=== PATIENT | male | born 1965 | race Caucasian/White ===

== ENCOUNTER 2021-08-01 23:22 | Day surgery (SDC) | payer SELFPAY ==
[~2021-08-01] VITALS: Ht 170.1 cm; Wt 65.0 kg
[2021-08-01 23:43] LABS: BASOPHILS # (AUTO) 0.1 10^3/uL (0.0-0.1); BASOPHILS % (AUTO) 1 % (0-10); MEAN CORPUSCULAR HGB CONC 33 g/dL (32-36)
[2021-08-01 23:45] LABS: EOSINOPHILS # (AUTO) 0.4 10^3/uL (0.0-0.3); EOSINOPHILS % (AUTO) 3 % (0-10); HEMATOCRIT 46 % (40-54); LYMPHOCYTES # (AUTO) 2.1 10^3/uL (1.0-4.0); LYMPHOCYTES % (AUTO) 14 % (12-44); MEAN CORPUSCULAR HEMOGLOBIN 29 pg (25-34); MEAN CORPUSCULAR VOLUME 89 fL (80-99); MEAN PLATELET VOLUME 10.1 fL (9.0-12.2); MONOCYTES # (AUTO) 0.9 10^3/uL (0.0-1.0); MONOCYTES % (AUTO) 6 % (0-12); NEUTROPHILS # (AUTO) 11.1 10^3/uL (1.8-7.8); NEUTROPHILS % (AUTO) 76 % (42-75); PLATELET COUNT 222 10^3/uL (130-400); WHITE BLOOD COUNT 14.6 10^3/uL (4.3-11.0)
[2021-08-01] MEDS ORDERED: fentaNYL INJ 100 MCG/2 ML AMP IVP ONE (23:45)
[2021-08-01] MEDS ORDERED: NS IV 1000 ML 1,000 ML IV SCH (23:45)
--- NOTE | 2021-08-01 23:50 | ED Chest Pain ---
General Chief Complaint: Chest Pain Stated Complaint: CP Source: patient, EMS Exam Limitations: no limitations History of Present Illness Date Seen by Provider: Aug 01, 2021 Time Seen by Provider: 23:19 Initial Comments Patient is a 55-year-old male who presents to the emergency room with severe chest pain midsternal radiating to his jaws and bilateral arms down into his right hand. Time of EMS call was about 1013. He reported to EMS that he had onset of pain about 30 minutes beforehand. He became nauseated sweaty, vomited and very short of breath. He has had intermittent chest pain with exertion over the last 2 or 3 days. He had been working out in his yard today. He takes no daily medications. Last time he saw Was sometime in 2014 or 2016. He is a smoker. Does not recall any family history of coronary artery disease. Rates the pain at 10 out of 10. Prior to arrival he received morphine, nitro and a full aspirin. The nitro and morphine reportedly dropped his blood pressure down into the 80s. He does have fluids running. I ordered a heparin bolus. Patient has been given 50 mics of fentanyl. No recent illnesses. No black or bloody stool. All other review of systems reviewed and negative except as stated. 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: Yes NTG SL DISHROOM ATTENDANT: Yes Associated Symptoms: back pain, diaphoresis, nausea/vomiting, shortness of breath Allergies and Home Medications Allergies Coded Allergies: No Known Drug Allergies (Unverified , 08/01/21) Patient Home Medication List Home Medication List Reviewed: Yes Review of Systems Review of Systems Constitutional: see HPI EENTM: No Symptoms Reported Respiratory: Shortness of Air Cardiovascular: Chest Pain Gastrointestinal: Nausea Genitourinary: No Symptoms Reported Musculoskeletal: other (bilat arm pain) Skin: other (sweaty) Psychiatric/Neurological: Anxiety All Other Systems Reviewed Negative Unless Noted: Yes Physical Exam Vital Signs Vital Signs - First Documented 08/01/21 08/01/21 23:22 23:50 Temp 36.7 Pulse 118 Resp 24 B/P (MAP) 95/68 (77) Pulse Ox 97 O2 Delivery Room Air Capillary Refill : Height, Weight, BMI Height: '" Weight: lbs. oz. kg; BMI Method: General Appearance: WD/WN, Anxious, Severe Distress HEENT: PERRL/EOMI, Other (porr dentition) Neck: Normal Inspection Respiratory: Lungs Clear, Normal Breath Sounds, No Accessory Muscle Use, No Respiratory Distress Cardiovascular: Regular Rate, Rhythm (60's), Normal Peripheral Pulses (bilateral 2+ radial pulses) Gastrointestinal: Non Tender, Soft Genital/Rectal: Normal Genital Exam Extremity: Normal Capillary Refill, Normal Inspection, Normal Range of Motion, No Pedal Edema Neurologic/Psychiatric: Alert, Oriented x3, No Motor/Sensory Deficits, Normal Mood/Affect Skin: Warm/Dry, Pallor (greay-farzana) Critical Care Note Critical Care Start Time: 23:19 Stop Time: 00:00 Total Time (minutes) 30 minutes critical care time in the evaluation and management of this patient with severe chest pain, STEMI. Time includes initial evaluation and management, fluid resuscitation for low blood pressure status post nitro and morphine. Medication administration. review and interpretation of EKG, review and interpretation of chest x-ray, discussion with cardiology. Progress/Results/Core Measures Results/Orders Lab Results Laboratory Tests Test 08/01/21 23:33 Range/Units White Blood Count 14.6 H 4.3-11.0 10^3/uL Red Blood Count 5.16 4.30-5.52 10^6/uL Hemoglobin 15.0 13.3-17.7 g/dL Hematocrit 46 40-54 % Mean Corpuscular Volume 89 80-99 fL Mean Corpuscular Hemoglobin 29 25-34 pg Mean Corpuscular Hemoglobin Concent 33 32-36 g/dL Red Cell Distribution Width 13.2 10.0-14.5 % Platelet Count 222 130-400 10^3/uL Mean Platelet Volume 10.1 9.0-12.2 fL Immature Granulocyte % (Auto) 1 % Neutrophils (%) (Auto) 76 H 42-75 % Lymphocytes (%) (Auto) 14 12-44 % Monocytes (%) (Auto) 6 0-12 % Eosinophils (%) (Auto) 3 0-10 % Basophils (%) (Auto) 1 0-10 % Neutrophils # (Auto) 11.1 H 1.8-7.8 10^3/uL Lymphocytes # (Auto) 2.1 1.0-4.0 10^3/uL Monocytes # (Auto) 0.9 0.0-1.0 10^3/uL Eosinophils # (Auto) 0.4 H 0.0-0.3 10^3/uL Basophils # (Auto) 0.1 0.0-0.1 10^3/uL Immature Granulocyte # (Auto) 0.1 0.0-0.1 10^3/uL Percent Immature Platelet Fraction 4.8 0.0-7.6 % Prothrombin Time 13.1 12.2-14.7 SEC INR Comment 1.0 0.8-1.4 Activated Partial Thromboplast Time 24 24-35 SEC Sodium Level 144 135-145 MMOL/L Potassium Level 3.7 3.6-5.0 MMOL/L Chloride Level 107 98-107 MMOL/L Carbon Dioxide Level 17 L 21-32 MMOL/L Anion Gap 20 H 5-14 MMOL/L Blood Urea Nitrogen 8 7-18 MG/DL Creatinine 1.30 0.60-1.30 MG/DL Estimat Glomerular Filtration Rate 64 BUN/Creatinine Ratio 6 Glucose Level 125 H 70-105 MG/DL Calcium Level 8.5 8.5-10.1 MG/DL Corrected Calcium 8.6 8.5-10.1 MG/DL Magnesium Level 1.9 1.6-2.4 MG/DL Total Bilirubin 0.2 0.1-1.0 MG/DL Aspartate Amino Transf (AST/SGOT) 9 5-34 U/L Alanine Aminotransferase (ALT/SGPT) 11 0-55 U/L Alkaline Phosphatase 78 40-136 U/L Myoglobin 68.6 10.0-92.0 NG/ML Troponin I 0.216 H <0.028 NG/ML Total Protein 6.7 6.4-8.2 GM/DL Albumin 3.9 3.2-4.5 GM/DL My Orders Orders - DAVID MUNOZ MD Cbc With Automated Diff (08/01/21 23:32) Magnesium (08/01/21 23:32) Chest 1 View, Ap/Pa Only (08/01/21 23:32) Ekg Tracing (08/01/21 23:32) Comprehensive Metabolic Panel (08/01/21 23:32) Myoglobin Serum (08/01/21 23:32) Protime With Inr (08/01/21 23:32) Partial Thromboplastin Time (08/01/21 23:32) O2 (08/01/21 23:32) Monitor-Rhythm Ecg Trace Only (08/01/21 23:32) Lipid Panel (08/02/21 06:00) Ed Iv/Invasive Line Start (08/01/21 23:32) Troponin I Nery (08/01/21 23:32) Fentanyl Inj (Sublimaze Injection) (08/01/21 23:45) Ns Iv 1000 Ml (Sodium Chloride 0.9%) (08/01/21 23:45) Heparin Injection (Heparin Injection) (08/01/21 23:45) Medications Given in ED Current Medications Medications Dose Ordered Sig/Augustus Route Start Time Stop Time Status Last Admin Dose Admin Fentanyl Citrate 50 mcg ONCE ONCE IVP 08/01/21 23:45 08/01/21 23:46 DC 08/01/21 23:43 50 MCG Heparin Sodium (Porcine) 5,000 units ONCE ONCE IV 08/01/21 23:45 08/01/21 23:46 DC 08/01/21 23:46 5,000 UNITS Vital Signs/I&O 08/01/21 08/01/21 23:22 23:50 Temp 36.7 Pulse 118 Resp 24 B/P (MAP) 95/68 (77) Pulse Ox 97 99 O2 Delivery Room Air Nasal Cannula 08/02/21 00:00 Intake Total 1200 ml Balance 1200 ml Progress Progress Note : Time: 23:50 Progress Note Discussed with Dr Mccauley at 2333 - will call STEMI; I notified the Latcher who will call the Reference Data Expert team; Dr Mccauley in ED @ 0706 Initial ECG Impression Date: Aug 01, 2021 Initial ECG Impression Time: 23:29 Initial ECG Rate: 67 Initial ECG Rhythm: Normal Sinus Initial ECG Intervals ME 155 QRS 128 QTC 445 Comment PVC; LBBB; ST depression inferiorly 2-3mm; ST elevation lateral leads 1mm with possible elevation 1 and aVL Diagnostic Imaging Diagonstic Imaging: Xray Plain Films/CT/US/NM/MRI: chest Comments no cardiomegaly; looks a little volume heavy with mild pulmonary edema; no infiltrates or effusions; bony structures appear unremarkable Departure Impression Primary Impression: STEMI (ST elevation myocardial infarction) Qualified Codes: I21.3 - ST elevation (STEMI) myocardial infarction of unspecified site Disposition: 09 ADMITTED INPATIENT Condition: Critical Admissions Decision to Admit Reason: Admit from ER (General) Decision to Admit/Date: Aug 01, 2021 Time/Decision to Admit Time: 23:33 Departure-Patient Inst. Referrals: UNKNOWN (PCP) Primary Care Physician DAVID MUNOZ MD Aug 01, 2021 23:50
[2021-08-01 23:51] LABS: ALBUMIN 3.9 GM/DL (3.2-4.5)
[2021-08-01 23:52] LABS: POTASSIUM 3.7 MMOL/L (3.6-5.0)
[2021-08-01 23:53] LABS: CALCIUM 8.5 MG/DL (8.5-10.1)
[2021-08-01 23:54] LABS: PROTHROMBIN TIME PATIENT 13.1 SEC (12.2-14.7); TOTAL PROTEIN 6.7 GM/DL (6.4-8.2)
[2021-08-01 23:56] LABS: BILIRUBIN,TOTAL 0.2 MG/DL (0.1-1.0)
[2021-08-01 23:58] LABS: CREATININE SERUM 1.3 MG/DL (0.60-1.30)
--- NOTE | 2021-08-01 23:58 | Consultation-Cardiology ---
HPI-Cardiology Cardiology Consultation: Date of Consultation 08/01/21 Date of Admission 08/01/21 Attending Physician Admitting Physician Unknown Consulting Physician DAKOTA FARRELL JR, MD HPI: Time Seen by a Provider: 23:53 Chief Complaint: Chest pain Narinder is a 55-year-old male with no known history of coronary artery disease who has had a several day history of exertional chest discomfort and dyspnea. This would resolve with rest. He did not seek medical attention. Then this evening he developed severe substernal chest discomfort at rest. This again made him short of breath. This radiated to his back and left shoulder. He became concerned and called EMS. He was then brought to our emergency room for further evaluation. In the ambulance he was given intravenous morphine which then caused some hypotension. Here in the emergency room he continues to complain of 10/10 chest pain. Nothing seems to be helping. He did have some nausea and vomiting prior to calling the ambulance. He denies paroxysmal nocturnal dyspnea, insomnia, palpitations, lightheadedness, syncope, or ankle edema. He smokes cigarettes and marijuana but denies illegal drug use. Certain portions of this document may have been dictated utilizing voice recognition technology. Inherent to this technology, typographical and grammatical errors may exist. As much as I am diligent to identify and correct these mistakes, some errors may remain in the document. Review of Systems-Cardiology Review of Systems Other comments Review of 10 organ systems is as per the history of present illness, otherwise negative. All Other Systems Reviewed Negative Unless Noted: Yes LPG-[id number] Hx Patient Social History Smoking Status: Current Everyday Smoker Past Medical History PMH As described under Assessment. Family Medical History Family Medical History: The patient does not know of any family history of premature coronary artery disease in first-degree relatives. Allergies and Home Medications Allergies Coded Allergies: No Known Drug Allergies (Unverified , 08/01/21) Patient Home Medication List Home Medication List Reviewed: Yes Exam Vital Signs Vital Signs Date Time Temp Pulse Resp B/P (MAP) Pulse Ox O2 Delivery O2 Flow Rate FiO2 08/01/21 23:22 97 Room Air Physical Exam General: Alert. Well nourished and appears older than stated age. He is disheveled. He is writhing in pain. Eye: Extraocular movements are intact. Conjunctivae are clear. There are no xanthelasma. HENT: Normocephalic. Atraumatic. Carotid pulsations 2/2 without bruits. Extremely poor dentition. Neck: Jugular venous pressure does not appear elevated. No thyromegaly appreciated. Respiratory: Lungs are clear to auscultation. Respirations are non-labored. Breath sounds are equal. Symmetrical chest wall expansion. Cardiovascular: Normal rate. Regular rhythm. No murmur. No gallop. Point of maximal impulse is not appear displaced. Good pulses equal in all extremities. No edema. Gastrointestinal: Soft. Normal bowel sounds. Skin: Skin turgor is normal. There is no pallor. Musculoskeletal: No kyphosis or scoliosis appreciated. Neurologic: Alert and oriented to person, place, time. Cranial nerves 3-12 appear grossly intact. The patient has good motor tone strength in the upper and lower extremities bilaterally. Psychiatric: Cooperative. Appropriate mood & affect. Labs Laboratory Tests Test 08/01/21 23:33 Range/Units White Blood Count 14.6 H 4.3-11.0 10^3/uL Red Blood Count 5.16 4.30-5.52 10^6/uL Hemoglobin 15.0 13.3-17.7 g/dL Hematocrit 46 40-54 % Mean Corpuscular Volume 89 80-99 fL Mean Corpuscular Hemoglobin 29 25-34 pg Mean Corpuscular Hemoglobin Concent 33 32-36 g/dL Red Cell Distribution Width 13.2 10.0-14.5 % Platelet Count 222 130-400 10^3/uL Mean Platelet Volume 10.1 9.0-12.2 fL Immature Granulocyte % (Auto) 1 % Neutrophils (%) (Auto) 76 H 42-75 % Lymphocytes (%) (Auto) 14 12-44 % Monocytes (%) (Auto) 6 0-12 % Eosinophils (%) (Auto) 3 0-10 % Basophils (%) (Auto) 1 0-10 % Neutrophils # (Auto) 11.1 H 1.8-7.8 10^3/uL Lymphocytes # (Auto) 2.1 1.0-4.0 10^3/uL Monocytes # (Auto) 0.9 0.0-1.0 10^3/uL Eosinophils # (Auto) 0.4 H 0.0-0.3 10^3/uL Basophils # (Auto) 0.1 0.0-0.1 10^3/uL Immature Granulocyte # (Auto) 0.1 0.0-0.1 10^3/uL Percent Immature Platelet Fraction 4.8 0.0-7.6 % Sodium Level 144 135-145 MMOL/L Potassium Level 3.7 3.6-5.0 MMOL/L Chloride Level 107 98-107 MMOL/L Albumin 3.9 3.2-4.5 GM/DL ECG Impression ECG Comment Sinus rhythm with lateral ST elevation and inferior ST depression with oc casional premature ventricular complexes. Diagnosis/Problems Diagnosis/Problems (1) ST elevation myocardial infarction (STEMI) of lateral wall, initial episode of care Assessment & Plan: He appears to be suffering an acute lateral ST elevation myocardial infarction. He has had some soft blood pressures but does not appear to be in overt cardiogenic shock. He has received aspirin and intravenous morphine as well as a heparin bolus. I recommend further evaluation with emergency cardiac catheterization. I explained the benefits and risks of the procedure to the patient and he is in agreement to proceed. I will start him on intensive dose statin medication. (2) Cigarette smoker Assessment & Plan: He needs to quit smoking. DAKOTA FARRELL JR, MD Aug 01, 2021 23:58
[2021-08-02] LABS: MAGNESIUM 1.9 MG/DL (1.6-2.4)
[2021-08-02] MEDS ORDERED: ZOLPIDEM 5 MG (AMBIEN) TAB PO PRN
[2021-08-02] MEDS ORDERED: ANTACID SUSP 30 ML UDC (MYLANTA) PO PRN
[2021-08-02] MEDS ORDERED: ACETAMINOPHEN 500 MG TAB (TYLENOL) PO PRN
--- NOTE | 2021-08-02 00:03 | Pre-Op Note & Conscious Sedat ---
Pre-Operative Progress Note H&P Reviewed The H&P was reviewed, patient examined and no changes noted. Date H&P Reviewed: Aug 02, 2021 Time H&P Reviewed: 00:02 Pre-Op Diagnosis: Lateral STEMI Conscious Sedation Pre-Proced ASA Score 3 For ASA 3 and 4: Consider anesthesia and medical clearance. Also, for patients with a history of failed moderate sedation consider anesthesia. Airway Lungs Heart ASA score ASA 1: a normal healthy patient ASA 2: a patient with a mild systemic disease (mid diabetes, controlled hypertension, obesity ASA 3: a patient with a severe systemic disease that limits activity (angina, COPD, prior Myocardial infarction) ASA 4: a patient with an incapacitating disease that is a constant threat to life (CHF, renal failure) ASA 5: a moribund patient not expected to survive 24 hrs. (ruptured aneurysm) ASA 6: a declared brain- patient whose organs are being harvested. For emergent operations, add the letter E after the classification Mallampati Classification Grade 1 Sedation Plan Analgesia, Amnesia, Plan communicated to team members, Discussed options with patient/fam, Discussed risks with patient/fam The patient is an appropriate candidate to undergo the planned procedure, sedation, and anesthesia. The patient immediately re-assessed prior to indication. DAKOTA FARRELL JR, MD Aug 02, 2021 00:03
[2021-08-02] MEDS ORDERED: VERAPAMIL 5 MG/2 ML (CALAN) VIAL IV ONE (00:07)
[2021-08-02] MEDS ORDERED: HEParin 1000 UNIT/ML (10ML VIAL) FOR BOLUS ONE (00:08)
[2021-08-02] MEDS ORDERED: LIDOCAINE 1% INJ 20 ML VIAL ONE (00:08)
[2021-08-02] MEDS ORDERED: fentaNYL INJ 100 MCG/2 ML AMP ONE (00:08)
[2021-08-02] MEDS ORDERED: NITRO DRIP 25000 MCG/D5W 0 ML IV ONE (00:08)
[2021-08-02] MEDS ORDERED: MIDAZOLAM 5 MG/5 ML (VERSED) VIAL ONE (00:08)
[2021-08-02] MEDS ORDERED: NS IV 1000 ML 1,000 ML IV ONE (00:09)
[2021-08-02] MEDS ORDERED: NITRO DRIP 25000 MCG/D5W 250 ML IV ONE (00:09)
[2021-08-02] MEDS ORDERED: SUCCINYLCHOLINE INJ 100 MG/5 ML SYR/VIAL INJ ONE (00:09)
[2021-08-02] MEDS ORDERED: ROCURONIUM 10 MG/ML 5 ML SYRINGE IV ONE (00:09)
[2021-08-02] MEDS ORDERED: LIDOCAINE 1% INJ 20 ML VIAL INJ ONE (00:09)
[2021-08-02] MEDS ORDERED: EPINEPHrine 0.1 MG/ML 10 ML (HOSPIRA) SYR IJ ONE (00:09)
[2021-08-02] MEDS ORDERED: HEParin (CATH LAB) 1,000 ML IV ONE ×2 (00:09→00:43)
[2021-08-02] MEDS ORDERED: DOPamine DRIP 250 ML IV ONE (00:09)
[2021-08-02] MEDS ORDERED: ETOMIDATE IV SOLN 20 MG/10 ML VIAL IV ONE (00:09)
[2021-08-02] MEDS ORDERED: SODIUM BICARB 8.4% 50 MEQ/50 ML (ABBOTT) SYR INJ ONE (00:09)
[2021-08-02 00:22] VITALS: BP 140/76
[2021-08-02 01:08] LABS: ABG BASE EXCESS -8.8 MMOL/L (-2.5-2.5); ABG OXYGEN SATURATION 95 % (94-100); ABG PCO2 47 MMHG (35-45); ABG PO2 77 MMHG (79-93); ABG TCO2 19.2 MMOL/L (21.0-31.0)
[2021-08-02 01:10] LABS: ALLENS TEST YES-POS; INSPIRED O2 10L; PATIENT TEMP 29.9; VENTILATOR NO
[2021-08-02] MEDS ORDERED: NS IV 1000 ML 1,000 ML ONE (01:32)
[2021-08-02] MEDS ORDERED: ceFAZolin INJECTION 1,000 MG ONE (01:51)
--- NOTE | 2021-08-02 02:04 | Cardiac Cath Report ---
CARDIAC CATHETERIZATION DATE OF PROCEDURE: 08/02/2021 INDICATION: Acute lateral ST elevation myocardial infarction. HISTORY: The patient is a 55 year old male with no previously known history of coronary artery disease who has had a 3-4-day history of exertional chest discomfort and dyspnea. He did not seek medical attention until this evening when he developed chest discomfort at rest. He called 911 and was brought to the emergency room at [facility] in [place], [place]. His electrocardiogram showed lateral ST elevation with inferior ST depression. A code STEMI was called. He is now referred for emergency cardiac catheterization. PROCEDURES PERFORMED: 1. Diagnostic [place] coronary angiography. PROCEDURE DESCRIPTION: After informed consent and in the fasting state, left heart catheterization was performed through the right radial artery utilizing a 6 Japanese system by percutaneous approach. A 5 Japanese JR4 catheter was utilized to interrogate the right coronary and a 6 Japanese CLS 3.5 guide catheter was utilized to interrogate the left coronary artery. All catheters were exchanged over a guidewire. Following the procedure, a vascular band was applied to the radial artery access site and the sheath was removed with good hemostasis. I did also attempt to gain access to the left and right femoral arteries using a micropuncture technique by percutaneous approach. When I accessed the right femoral artery and inserted the micropuncture sheath, no blood came back through the sheath. As such, that sheath and wire were removed and manual pressure was held. I then accessed the left femoral artery and was able to insert the sheath but the wire would not advance into the aorta. At that time left femoral angiogram was performed which showed the left external iliac to be occluded. The left femoral micropuncture sheath was removed and manual pressure was held. RESULTS: HEMODYNAMICS: The aortic pressure was 92/67 mmHg. The aortic valve was not crossed. CORONARY ANGIOGRAPHY: The coronary arteries were moderately calcified and the left coronary artery was diffusely small in caliber. Left main coronary artery: There was a near total 99% occlusion with DANGELO-2 flow. Left anterior descending coronary artery: There was a 70% stenosis in the midsegment with DANGELO-2 flow. Left circumflex coronary artery: This was essentially a large first obtuse marginal branch which was free of significant disease. Right coronary artery: Dominant and diffusely diseased with a focal 50% stenosis in the midsegment. There were right to left collaterals seen filling the distal left anterior descending coronary artery. IMPRESSION: 1. Borderline low systemic blood pressure. 2. Severe two-vessel coronary artery disease involving a critical stenosis of the left main coronary artery as outlined above. 3. 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 4. Stat bedside echocardiogram revealed severe left ventricular systolic dysfunction with an estimated ejection fraction of 20-25% with mild mitral and tricuspid regurgitation. 5. The patient will be transferred to [facility] for possible emergency coronary bypass surgery. Certain portions of this document may have been dictated utilizing voice recognition technology. Inherent to this technology, typographical and grammatical errors may exist. As much as I am diligent to identify and correct these mistakes, some errors may remain in the document. DAKOTA FARRELL JR, MD Aug 02, 2021 02:04
[2021-08-02] MEDS ORDERED: KETAMINE 50 MG/5 ML SYRINGE ONE (02:34)
[2021-08-02] MEDS ORDERED: NS (IVPB) 250 ML ONE (02:42)
[2021-08-02] MEDS ORDERED: EPINEPHrine (OMNICELL DRIP KIT ONLY) 1 MG/ML AMP ONE ×2 (02:42)
--- NOTE | 2021-08-02 03:12 | Anesthesia-Procedure Note ---
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 Upon arrival at 0122, report received from Dr Mccauley that they were in the process of balloon pump, unable to sedate patient adequately for procedure due to being unstable, and patient being transferred to [place] thus asking for intubation to proceed with balloon pump and safe transfer. Dr Isaac was present at the head of patient's bed and asking for supplies for intubation. I suggested attempting sedation with ketamine/propofol in order to finish procedure, instead of intubation at this time. NIBP 108/63 HR [address] 92%. Dr. Mccauley felt patient was going to require intubation for transfer and further treatment thus requested we proceed with intubation. The patient was informed of our intent to intubate and I reviewed lab values. Etomidate 20mg and 100mg Succs IV given at 0127. The patient never fasiculated and his jaw was clamped down, even after ample time. I asked for IV site to be evaluated and it was thought to be patent. I was finally able to open his mouth enough to insert Holman with good grade 1 view and 7.5 ett placed easily on 1 attempt. (Time from drugs pushed to ett placement was recorded at 2 minutes). Good color change on etco2 indicator, good bilateral breath sounds, although coarse. RT present to secure tube at 22cm at lip. NIBP 61/48 HR 100 SaO2 87% at 0131. Over next 10 minutes, VS improved, SaO2 >90%, working on transfer of patient. At 0131, 50mg Rocuronium given as patient was fighting ett and making it difficult to ventilate. Patient continued to thrash around, thus I evaluated IV site myself and found it to be infiltrated. New 20 g IV started by this CLINICAL PRACTICE CONSULTANT to left forearm. At 0200 I gave another 50mg Rocuronium, assuming he did not get the full dose at 0131 due to infiltrated IV site. VS at 0200 were 111/75, HR 111, Sao2 97%. The patient did not oxygenate well with several attempts to place him on vent. Settings were adjusted multiple times by RT but we continued to need to ventilate him with ambu bag to keep Sao2 >90%. ETcO2 hooked up to ett with etco2 30 around 0200. I was leaving the [facility] at 0215 as the patient was stable, being ventilated per RT, and staff was awaiting transfer per EMS. Prior to me exiting the room, it was announced they could not obtain an NIBP and HR noted to be dropping quickly. I gave 20mg Ephedrine at 0218 for HR 60 and no NIBP, pulse present. At 0219, it was determined the patient did not have palpable pulse and CPR was initiated. Code ran per Dr. Mccauley and [facility] staff. See notes for code from [facility]. EtCO2 20-30 during code with Sao2 92-95%. Stop Time: 02:45 KUMAR CARABALLO CRNA Aug 02, 2021 03:12
--- NOTE | 2021-08-02 07:12 | Diagnostic Imaging Report ---
INDICATION: Chest pain FINDINGS: The heart size upper limits. There is mild vascular congestion. There is some prominence of the interstitial lung markings bilaterally. While this could be inflammatory or infectious, interstitial edema is suggested. Correlate clinically. No pleural fluid. No pneumothorax. No airspace consolidation or bronchograms. IMPRESSION: 1. Upper limits heart size and venous caliber. Somewhat nodular prominence of the interstitial lung markings bilaterally may reflect infectious disease or interstitial edema. No pleural fluid or pneumothorax. Normal symmetric lung volumes. Dictated by: Dictated on workstation # [id number]
--- NOTE | 2021-08-02 17:54 | Discharge Summary ---
Diagnosis/Chief Complaint Date of Admission 08/01/21 Date of Discharge 08/02/21 Discharge Date: Aug 02, 2021 Discharge Time: 03:00 Admission Diagnosis Admission Diagnosis Acute lateral ST elevation myocardial infarction. Discharge Diagnosis 1. Coronary artery disease with acute lateral ST elevation myocardial infarction. 2. Cardiac arrest with pulseless electrical activity due to #1. 3. Ischemic cardiomyopathy due to #1. 4. Cardiogenic shock. 5. Cigarette smoker. Reason Hospital Visit Chest pain with abnormal electrocardiogram showing lateral ST elevation consistent with an acute lateral ST elevation myocardial infarction. Discharge Summary Hospital Course Was the Problem List Reviewed?: Yes Hospital Course The patient developed severe substernal chest discomfort at rest and called 911. He was taken to our emergency room for further evaluation. In the emergency room he was found to have lateral ST elevation and a code STEMI was called. He was then taken for emergent cardiac catheterization. He was found to have sever e disease of the left main coronary artery with essentially a subtotal occlusion. I attempted to place a balloon pump via both the right and left femoral arteries but both external iliac arteries appeared to be occluded. During the procedure he was quite agitated and moving all around on the table which was dislodging the equipment from his right radial access site. In light of the severe left main coronary artery disease, I made a call to [facility] and Jon Palomino MD from cardiac surgery accepted the patient in transfer. Due to the patient thrashing about on the procedure table, he was intubated and sedated by anesthesia. A short while later, the patient became pulseless with electrical activity. CPR and advanced cardiac life support was performed for approximately 20 minutes at which point the patient regained spontaneous circulation but was also on dopamine infusion at that point in time. His mother and daughter were then brought to the bedside in the procedure room. We then started the patient on epinephrine infusion after maximizing the dopamine infusion within a short period of time, the patient again developed pulseless electrical activity at which time he also had an agonal rhythm. We did notify that the patient's family prior to this final loss of pulse that additional resuscitative efforts would most likely be futile. When the patient lost his pulse the second time, he was pronounced on 08/02/2021 at 03:00. Labs Laboratory Tests 08/01/21 23:33: White Blood Count 14.6H, Neutrophils (%) (Auto) 76H, Neutrophils # (Auto) 11.1H, Eosinophils # (Auto) 0.4H, Carbon Dioxide Level 17L, Anion Gap 20H, Glucose Level 125H, Troponin I 0.216H 08/02/21 01:02: Arterial Blood pH 7.20*L, Arterial Blood Partial Pressure CO2 47H, Arterial Blood Partial Pressure O2 77L, Arterial Blood HCO3 18L, Arterial Blood Total CO2 19.2L, Arterial Blood Base Excess -8.8L Procedures Emergency cardiac catheterization. Emergency echocardiogram. Emergency intubation. Advanced cardiac life support. Discharge Physical Examination Allergies: Coded Allergies: No Known Drug Allergies (Unverified , 08/01/21) Vitals & I&Os Vital Signs Date Time Temp Pulse Resp B/P (MAP) Pulse Ox O2 Delivery O2 Flow Rate FiO2 08/02/21 00:22 96 20 140/76 97 Nasal Cannula 4.00 08/01/21 23:50 36.7 Discharge Home Medications Reviewed and agree with Discharge Medication list on patient's Discharge Instruction sheet Condition at Discharge Instructions to Patient/Family Please see electronic discharge instructions given to patient. Clinical Quality Measures End of Life/Advance Care Plan: Advance Care discuss with: family member (s) Plan: developed treatment plan Admission Status Admission Status: Other AMI/AHF: ASA po Prior to arrival: Yes DAKOTA FARRELL JR, MD Aug 02, 2021 17:53
[2021-08-02] MEDS ORDERED: ROSUVASTATIN 20 MG (CRESTOR) TABLET PO SCH ×2 (21:00)
== END 2021-08-02 ==
LOC: ER 23:26 → CATH 08-02 00:08
PROVIDERS: ATTEND Internal Medicine Cardiovascular Disease
DX: I25.10 Atherosclerotic heart disease of native coronary artery without angina pectoris (principal); I21.9 Acute myocardial infarction, unspecified; I46.9 Cardiac arrest, cause unspecified; I25.5 Ischemic cardiomyopathy; R57.0 Cardiogenic shock; I08.1 Rheumatic disorders of both mitral and tricuspid valves; F17.210 Nicotine dependence, cigarettes, uncomplicated
CPT/HCPCS: 71045; 80053; 82805; 83036; 83735; 83874; 84484; 85025; 85610; 85730; 93005; 93041; 93308; 93454; 99285; C1725; C1769; C1887; C1894; 36415